=== PATIENT | male | born 1950 | race Caucasian/White ===

== ENCOUNTER 2020-11-16 07:18 | Outpatient (REF) | payer MEDICARE, SELFPAY ==
[2020-11-16 11:13] LABS: MANUAL DIFF FLAG NO
[2020-11-16 11:20] LABS: Basophils Absolute Auto 0.2 X10*3/uL (0.0-0.2); Basophils Percent Auto 1.6 % (0-2); Eosinophils Absolute Auto 0.5 X10*3/uL (0.0-0.4); Eosinophils Percent Auto 5.6 % (0-4); Hematocrit 49.3 % (42-52); Hemoglobin 16.4 g/dl (14.0-18.0); Imm Gran Abs Auto 0.02 X10*3/uL (0.00-0.03); Imm Gran Pct Auto 0.2 % (0.0-0.4); Lymphocytes Absolute Auto 4.4 X10*3/uL (1.2-4.9); Lymphocytes Percent Auto 46.4 % (20-40); Mean Corpuscular HGB Conc 33.3 g/dl (31.0-36.0); Mean Corpuscular Hemoglobin 30.2 pg (27.0-33.0); Mean Corpuscular Volume 90.8 fL (80-98); Mean Platelet Volume 10.8 fL (9.4-12.4); Monocytes Absolute Auto 1.4 X10*3/uL (0.1-1.2); Monocytes Percent Auto 14.2 % (2-11); Platelet Count 285 X10*3/uL (160-400); Red Blood Count 5.43 X10*6/uL (4.60-5.80); Red Cell Distribution Width 13.6 % (11.0-16.0); White Blood Count 9.5 X10*3/uL (4.8-10.8)
[2020-11-16 11:26] LABS: Glucose Urine UA NEG (NEG); Leukocyte Esterase Urine NEG (NEG); Nitrite Urine NEG (NEG); Specific Gravity - Urine 1.025 (1.005-1.025); Urine Blood NEG (NEG); Urine Ketones NEG (NEG); Urine Protein NEG (NEG-TRACE)
[2020-11-16 11:38] LABS: Alanine Aminotransferase 22 U/L (0-40); Albumin Level 4.2 g/dL (3.5-5.0); Alkaline Phosphatase 57 U/L (39-117); Anion Gap 12 (12-20); Aspartate Amino Transferase 29 U/L (5-37); Bilirubin Total 1.1 mg/dL (0.0-1.0); Blood Urea Nitrogen 21 mg/dL (9-16); Calcium 8.9 mg/dL (8.4-10.2); Carbon Dioxide 29 mmol/L (22-29); Chloride 107 mmol/L (96-108); Cholesterol 205 mg/dL; Estimated Glomerular Filt Rate > 60; Glucose Fasting 127 mg/dL (60-99); HDL Cholesterol 44 mg/dL; LDL Cholesterol Calculated 112 mg/dl; Sodium 144 mmol/L (135-145); Total Protein 7.2 g/dL (6.5-8.0); Triglycerides 246 mg/dL
[2020-11-16 11:42] LABS: Appearance Urine CLEAR; Color Urine YELLOW
[2020-11-16 11:59] LABS: Prostate Specific Antigen Scr 1.06 ng/mL (<0.05-4.0)
[2020-11-16 12:09] LABS: Estimated Average Glucose 126 mg/dL
[2020-11-16 12:12] LABS: Mucus Urine 1+ /LPF; RBC Urine 0 /HPF (0); WBC Urine 0-2 /HPF (0-4)
== END 2020-11-16 07:19 | disposition home or self-care (01) ==
LOC: HO.HMGCLDS 07:18
PROVIDERS: PCP Internal Medicine; Visit Provider Internal Medicine
DX: R73.9 Hyperglycemia, unspecified (principal); Z00.00 Encounter for general adult medical examination without abnormal findings
CPT/HCPCS: 36415; 80053; 80061; 81001; 83036; 84153; 85025

== ENCOUNTER 2021-01-09 08:31 | Outpatient (REF) | payer MEDICARE, SELFPAY ==
[2021-01-09 11:30] LABS: Estimated Average Glucose 126 mg/dL
[2021-01-09 11:48] LABS: Alanine Aminotransferase 17 U/L (0-40); Albumin Level 4.4 g/dL (3.5-5.0); Alkaline Phosphatase 59 U/L (39-117); Anion Gap 14 (12-20); Aspartate Amino Transferase 29 U/L (5-37); Bilirubin Total 1.1 mg/dL (0.0-1.0); Blood Urea Nitrogen 24 mg/dL (9-16); Calcium 9.1 mg/dL (8.4-10.2); Carbon Dioxide 27 mmol/L (22-29); Chloride 105 mmol/L (96-108); Estimated Glomerular Filt Rate 57; Glucose Fasting 130 mg/dL (60-99); Potassium 4.1 mmol/L (3.3-5.1); Sodium 142 mmol/L (135-145); Total Protein 7.4 g/dL (6.5-8.0)
== END 2021-01-09 08:32 | disposition home or self-care (01) ==
LOC: HO.HMGCLDS 08:31
PROVIDERS: PCP Internal Medicine; Visit Provider Internal Medicine
DX: Z00.00 Encounter for general adult medical examination without abnormal findings (principal); I10 Essential (primary) hypertension; R73.9 Hyperglycemia, unspecified
CPT/HCPCS: 36415; 80053; 83036

== ENCOUNTER 2021-06-11 07:43 | Outpatient (REF) | payer MEDICARE, SELFPAY ==
[2021-06-11 11:24] LABS: Hematocrit 47.7 % (42-52); Hemoglobin 15.8 g/dl (14.0-18.0); Mean Corpuscular HGB Conc 33.1 g/dl (31.0-36.0); Mean Corpuscular Hemoglobin 29.7 pg (27.0-33.0); Mean Corpuscular Volume 89.7 fL (80-98); Mean Platelet Volume 10.4 fL (9.4-12.4); Platelet Count 258 X10*3/uL (160-400); Red Blood Count 5.32 X10*6/uL (4.60-5.80); Red Cell Distribution Width 13.5 % (11.0-16.0); White Blood Count 8.9 X10*3/uL (4.8-10.8)
[2021-06-11 11:42] LABS: Estimated Average Glucose 131 mg/dL; Hemoglobin A1c % 6.2 %
[2021-06-11 11:54] LABS: Alanine Aminotransferase 20 U/L (0-40); Albumin Level 4.2 g/dL (3.5-5.0); Alkaline Phosphatase 65 U/L (39-117); Anion Gap 15 (12-20); Aspartate Amino Transferase 25 U/L (5-37); Bilirubin Total 1.3 mg/dL (0.0-1.0); Blood Urea Nitrogen 16 mg/dL (9-16); Calcium 9.3 mg/dL (8.4-10.2); Carbon Dioxide 26 mmol/L (22-29); Chloride 106 mmol/L (96-108); Cholesterol 199 mg/dL; Estimated Glomerular Filt Rate 59; Glucose Fasting 119 mg/dL (60-99); HDL Cholesterol 45 mg/dL; LDL Cholesterol Calculated 105 mg/dl; Potassium 4.6 mmol/L (3.3-5.1); Sodium 142 mmol/L (135-145); Total Protein 7.3 g/dL (6.5-8.0); Triglycerides 249 mg/dL
[2021-06-11 12:01] LABS: Glucose Urine UA NEG (NEG); Leukocyte Esterase Urine NEG (NEG); Nitrite Urine NEG (NEG); Urine Blood NEG (NEG); Urine Ketones NEG (NEG); Urine Protein NEG (NEG-TRACE)
[2021-06-11 12:06] LABS: Appearance Urine CLEAR; Color Urine YELLOW
[2021-06-11 12:34] LABS: RBC Urine 0-2 /HPF (0); WBC Urine 0-2 /HPF (0-4)
== END 2021-06-11 07:44 | disposition home or self-care (01) ==
LOC: HO.HMGCLDS 07:43
PROVIDERS: PCP Internal Medicine; Visit Provider Internal Medicine
DX: Z00.00 Encounter for general adult medical examination without abnormal findings (principal); I10 Essential (primary) hypertension; R73.9 Hyperglycemia, unspecified
CPT/HCPCS: 36415; 80053; 80061; 81001; 83036; 85027

== ENCOUNTER 2021-12-17 07:17 | Outpatient (REF) | payer MEDICARE, SELFPAY ==
[2021-12-17 11:35] LABS: Estimated Average Glucose 126 mg/dL
[2021-12-17 12:09] LABS: Alanine Aminotransferase 27 U/L (0-40); Albumin Level 4.4 g/dL (3.5-5.0); Alkaline Phosphatase 61 U/L (39-117); Anion Gap 15 (12-20); Aspartate Amino Transferase 28 U/L (5-37); Bilirubin Total 0.9 mg/dL (0.0-1.0); Blood Urea Nitrogen 21 mg/dL (9-16); Calcium 9.7 mg/dL (8.4-10.2); Carbon Dioxide 26 mmol/L (22-29); Chloride 105 mmol/L (96-108); Cholesterol 212 mg/dL; Estimated Glomerular Filt Rate 59; Glucose Fasting 117 mg/dL (60-99); HDL Cholesterol 49 mg/dL; LDL Cholesterol Calculated 124 mg/dl; Sodium 142 mmol/L (135-145); Total Protein 7.9 g/dL (6.5-8.0); Triglycerides 197 mg/dL
[2021-12-17 12:17] LABS: Creatinine Urine 152.27 mg/dL; Microalbum/Creatinine Ratio Ur 33.4 ug/mg cr
== END 2021-12-17 07:18 | disposition home or self-care (01) ==
LOC: HO.HMGCLDS 07:17
PROVIDERS: Visit Provider Internal Medicine
DX: Z00.00 Encounter for general adult medical examination without abnormal findings (principal); I10 Essential (primary) hypertension; R73.9 Hyperglycemia, unspecified
CPT/HCPCS: 36415; 80053; 80061; 82043; 83036

== ENCOUNTER 2022-03-03 07:05 | Outpatient (REF) | payer MEDICARE, SELFPAY ==
[2022-03-03 12:38] LABS: Alanine Aminotransferase 25 U/L (0-40); Albumin Level 4.3 g/dL (3.5-5.0); Alkaline Phosphatase 61 U/L (39-117); Anion Gap 13 (12-20); Aspartate Amino Transferase 24 U/L (5-37); Bilirubin Total 0.9 mg/dL (0.0-1.0); Blood Urea Nitrogen 18 mg/dL (9-16); Calcium 9.8 mg/dL (8.4-10.2); Carbon Dioxide 29 mmol/L (22-29); Chloride 104 mmol/L (96-108); Cholesterol 198 mg/dL; Estimated Glomerular Filt Rate 55; Glucose Fasting 138 mg/dL (60-99); HDL Cholesterol 43 mg/dL; LDL Cholesterol Calculated 107 mg/dl; Potassium 3.8 mmol/L (3.3-5.1); Sodium 142 mmol/L (135-145); Total Protein 7.6 g/dL (6.5-8.0); Triglycerides 241 mg/dL
[2022-03-03 12:38] LABS: Creatinine Urine 167.04 mg/dL; Microalbum/Creatinine Ratio Ur 9.5 ug/mg cr
[2022-03-03 12:42] LABS: Prostate Specific Antigen Scr 1.08 ng/mL (<0.05-4.0)
[2022-03-03 12:59] LABS: Estimated Average Glucose 128 mg/dL; Hemoglobin A1c % 6.1 %
== END 2022-03-03 07:06 | disposition home or self-care (01) ==
LOC: HO.HMGCLDS 07:05
PROVIDERS: Visit Provider Internal Medicine
DX: Z00.00 Encounter for general adult medical examination without abnormal findings (principal); Z12.5 Encounter for screening for malignant neoplasm of prostate; I10 Essential (primary) hypertension; R73.9 Hyperglycemia, unspecified
CPT/HCPCS: 36415; 80053; 80061; 82043; 83036; 84153

== ENCOUNTER 2022-08-27 06:51 | Outpatient (REF) | payer MEDICARE, SELFPAY ==
[2022-08-27 11:30] LABS: Hematocrit 49.9 % (42.0-52.0); Hemoglobin 16.4 g/dl (14.0-18.0); Mean Corpuscular HGB Conc 32.9 g/dl (31.0-36.0); Mean Corpuscular Hemoglobin 29.5 pg (27.0-33.0); Mean Corpuscular Volume 89.9 fL (80.0-98.0); Mean Platelet Volume 10.6 fL (9.4-12.4); Platelet Count 272 X10*3/uL (160-400); Red Blood Count 5.55 X10*6/uL (4.60-5.80); Red Cell Distribution Width 13.8 % (11.0-16.0); White Blood Count 9.5 X10*3/uL (4.8-10.8)
[2022-08-27 11:42] LABS: Estimated Average Glucose 117 mg/dL; Hemoglobin A1c % 5.7 %
[2022-08-27 11:52] LABS: Alanine Aminotransferase 19 U/L (0-40); Albumin Level 4.5 g/dL (3.5-5.0); Alkaline Phosphatase 65 U/L (39-117); Anion Gap 15 (12-20); Aspartate Amino Transferase 22 U/L (5-37); Bilirubin Total 1.1 mg/dL (0.0-1.0); Blood Urea Nitrogen 17 mg/dL (9-16); Calcium 9.4 mg/dL (8.4-10.2); Carbon Dioxide 23 mmol/L (22-29); Chloride 107 mmol/L (96-108); Cholesterol 187 mg/dL; Estimated Glomerular Filt Rate > 60; Glucose Fasting 120 mg/dL (60-99); HDL Cholesterol 46 mg/dL; LDL Cholesterol Calculated 107 mg/dl; Potassium 4.3 mmol/L (3.3-5.1); Sodium 141 mmol/L (135-145); Total Protein 7.6 g/dL (6.5-8.0); Triglycerides 174 mg/dL
== END 2022-08-27 06:52 | disposition home or self-care (01) ==
LOC: HO.HMGCLDS 06:51
PROVIDERS: PCP Internal Medicine; Visit Provider Internal Medicine
DX: I10 Essential (primary) hypertension (principal); R73.9 Hyperglycemia, unspecified; E78.5 Hyperlipidemia, unspecified
CPT/HCPCS: 36415; 80053; 80061; 83036; 85027

== ENCOUNTER 2023-02-20 06:55 | Outpatient (REF) | payer MEDICARE, SELFPAY ==
[2023-02-20 11:17] LABS: MANUAL DIFF FLAG NO
[2023-02-20 11:28] LABS: Basophils Absolute Auto 0.1 X10*3/uL (0.0-0.2); Basophils Percent Auto 1.2 % (0-2); Eosinophils Absolute Auto 0.5 X10*3/uL (0.0-0.4); Eosinophils Percent Auto 4.8 % (0-4); Hematocrit 50.6 % (42.0-52.0); Hemoglobin 16.5 g/dl (14.0-18.0); Imm Gran Abs Auto 0.02 X10*3/uL (0.00-0.03); Imm Gran Pct Auto 0.2 % (0.0-0.4); Lymphocytes Absolute Auto 4.4 X10*3/uL (1.2-4.9); Lymphocytes Percent Auto 43.3 % (20-40); Mean Corpuscular HGB Conc 32.6 g/dl (31.0-36.0); Mean Corpuscular Hemoglobin 29.8 pg (27.0-33.0); Mean Corpuscular Volume 91.5 fL (80.0-98.0); Mean Platelet Volume 10.9 fL (9.4-12.4); Monocytes Absolute Auto 1.5 X10*3/uL (0.1-1.2); Monocytes Percent Auto 14.4 % (2-11); Neutrophils Absolute Auto 3.7 x10*3/uL (2.0-8.3); Neutrophils Percent Auto 36.1 % (45-73); Platelet Count 311 X10*3/uL (160-400); Red Blood Count 5.53 X10*6/uL (4.60-5.80); Red Cell Distribution Width 13.5 % (11.0-16.0); White Blood Count 10.2 X10*3/uL (4.8-10.8)
[2023-02-20 11:31] LABS: Estimated Average Glucose 126 mg/dL
[2023-02-20 11:59] LABS: Alanine Aminotransferase 22 U/L (0-40); Albumin Level 4.3 g/dL (3.5-5.0); Alkaline Phosphatase 70 U/L (39-117); Anion Gap 12 (12-20); Aspartate Amino Transferase 24 U/L (5-37); Bilirubin Total 1.3 mg/dL (0.0-1.0); Blood Urea Nitrogen 16 mg/dL (9-16); Calcium 9.3 mg/dL (8.4-10.2); Carbon Dioxide 26 mmol/L (22-29); Chloride 109 mmol/L (96-108); Cholesterol 213 mg/dL; Estimated Glomerular Filt Rate > 60; Glucose Fasting 124 mg/dL (60-99); HDL Cholesterol 48 mg/dL; LDL Cholesterol Calculated 120 mg/dl; Sodium 142 mmol/L (135-145); Total Protein 7.3 g/dL (6.5-8.0); Triglycerides 229 mg/dL
[2023-02-20 12:17] LABS: Creatinine Urine 141.55 mg/dL; Microalbum/Creatinine Ratio Ur 97.4 ug/mg cr
== END 2023-02-20 06:56 | disposition home or self-care (01) ==
LOC: HO.HMGCLDS 06:55
PROVIDERS: PCP Internal Medicine; Visit Provider Internal Medicine
DX: Z12.5 Encounter for screening for malignant neoplasm of prostate (principal); H40.9 Unspecified glaucoma; I10 Essential (primary) hypertension; R73.9 Hyperglycemia, unspecified; E78.5 Hyperlipidemia, unspecified
CPT/HCPCS: 36415; 80053; 80061; 82043; 83036; 84153; 85025

== ENCOUNTER 2023-10-10 09:22 | Outpatient (REF) | payer MEDICARE, MEDICAID, SELFPAY ==
[2023-10-10 12:20] LABS: Alanine Aminotransferase 24 U/L (0-40); Albumin Level 4.4 g/dL (3.5-5.0); Alkaline Phosphatase 67 U/L (39-117); Anion Gap 13 (12-20); Aspartate Amino Transferase 33 U/L (5-37); Bilirubin Total 1.4 mg/dL (0.0-1.0); Blood Urea Nitrogen 15 mg/dL (9-16); Calcium 9.7 mg/dL (8.4-10.2); Carbon Dioxide 25 mmol/L (22-29); Chloride 108 mmol/L (96-108); Cholesterol 190 mg/dL (<200); Estimated Average Glucose 120 mg/dL; Estimated Glomerular Filt Rate > 60; Glucose Fasting 108 mg/dL (60-99); HDL Cholesterol 47 mg/dL (>40); Hemoglobin A1c % 5.8 % (<6.0); LDL Cholesterol Calculated 111 mg/dL (<100); Potassium 4.4 mmol/L (3.3-5.1); Sodium 142 mmol/L (135-145); Total Protein 7.8 g/dL (6.5-8.0); Triglycerides 160 mg/dL (<150)
[2023-10-10 13:30] LABS: Creatinine Urine 174.78 mg/dL; Microalbum/Creatinine Ratio Ur 45.7 ug/mg cr (<30)
== END 2023-10-10 09:23 | disposition home or self-care (01) ==
LOC: HO.HMGCLDS 09:22
PROVIDERS: PCP Internal Medicine; Visit Provider Internal Medicine
DX: E78.5 Hyperlipidemia, unspecified (principal); R73.9 Hyperglycemia, unspecified
CPT/HCPCS: 36415; 80053; 80061; 82043; 82570; 83036

== ENCOUNTER 2023-10-13 09:15 | Outpatient (AMB) | payer MEDICARE, MEDICAID, SELFPAY ==
--- NOTE | 2023-10-13 09:20 | A.OFFPC_ITS ---
Vital Signs 10/13/23 09:23 Height 5 ft 5 in Weight 189 lb 6 oz BMI 31.5 BP 150/90 H Blood Pressure Location Rt brachial Position Sitting Pulse 74 Pulse Source Pulse Oximeter Pulse Oximetry (%) 95 Oxygen Delivery Method Room Air Intake Visit Reasons: PE Allergies No Known Allergies Allergy (Verified 10/13/23 09:25) Medication List - Last Reconciled 10/13/23 by Maria De Jesus Renee MD amlodipine 10 mg PO DAILY brimonidine 0.15% 1 drp ophthalmic (eye) BID dorzolamide-timolol 22.3-6.8 mg/mL 1 drp ophthalmic (eye) metoprolol succinate ER 100 mg PO DAILY olmesartan 20 mg PO DAILY tafluprost (PF) 0.0015% 1 drp ophthalmic (eye) BEDTIME triamterene-hydrochlorothiazid 37.5-25 mg 1 tab PO DAILY Tobacco use date assessed: 03/03/23 HPI PE HPI Details Pt presents for PE. PFSH Medical History Hyperlipemia Hyperglycemia Annual physical exam Glaucoma HTN (hypertension) Surgical History No pertinent past surgical history Family History Father Unknown family medical history Mother CVD (cardiovascular disease) Son No problems noted. Social History Housing: House Alcohol intake: current Alcohol intake frequency: a few times a month Patient Tobacco Use Status: Former Tobacco user e-Cigarette/Vaping Use: Never Used Current occupational status: retired Cognitive needs: No Hearing needs: No Vision needs: No Questionnaire Thrive Questionnaire Date Thrive assessed: 03/03/23 ABIGAIL-7 AMB Questionnaire ABIGAIL-7 Date ABIGAIL - 7 assessed: 03/03/23 Source: Developed by Drs. Bhupendra Coe, Teresa Szymanski, Gera Rankin and colleagues, with an educational yadi from [employer] Review of Systems Const All systems reviewed & are unremarkable except as noted in HPI and below Reports no additional complaints Eyes Reports no additional complaints ENT Reports no additional complaints Card Reports no additional complaints Resp Reports no additional complaints GI Reports no additional complaints Reports no additional complaints Physical exam (Primary Care) Vital Signs: Last Vital Signs Pulse 74 10/13/23 09:23 BP 150/90 H 10/13/23 09:23 Pulse Ox 95 10/13/23 09:23 Oxygen Delivery Method Room Air 10/13/23 09:23 BMI result Body Mass Index 31.5 Tobacco/Smoking Status: Tobacco use Status Tobacco use date assessed 03/03/23 10/13/23 09:22 Patient Tobacco Use Status Former Tobacco user 10/13/23 09:22 e-Cigarette/Vaping Use Never Used 10/13/23 09:22 Thrive Assessment: Date of Thrive Assessment Date Thrive assessed 03/03/23 10/13/23 09:22 Const General: no acute distress HENMT Head: Yes normal to inspection Ears: hearing grossly normal bilaterally General nose exam: Normal external nose present Face and sinus: Yes normal facial exam Mouth: Normal oral and palatal mucosa present Throat: Yes posterior oropharynx normal Eyes General: appearance normal, both eyes and all related structures Neck Neck: Yes no lymphadenopathy and Yes supple Resp Effort & Inspection: normal respiratory effort Auscultation: clear to auscultation bilaterally Cardio Rhythm: regular rhythm Heart sounds: S1 normal heart sound present and S2 normal heart sound present GI Inspection: Yes normal to inspection Palpation (GI): Soft to palpation Percussion: Yes normal to percussion Auscultation: normal bowel sounds Assessment and Plan Assessment & Plan (1) HTN (hypertension): Code(s): I10 - Essential (primary) hypertension Plan: Add 20 mg of olmesartan to current medications, low sodium diet increase physical activity discussed with the patient. BMP will be checked in 1 week and patient will follow-up in 6 weeks for blood pressure check (2) Hyperglycemia: Code(s): R73.9 - Hyperglycemia, unspecified Plan: A1c is 5.8, ADA diet increase exercise weight loss discussed with the patient. (3) Annual physical exam: Code(s): Z00.00 - Encounter for general adult medical examination without abnormal findings Plan: Well-balanced diet regular physical activity weight loss discussed with the patient. He refused colonoscopy and Cologuard (4) Colonoscopy refused: Comment: 09/20, 10/22 Code(s): Z53.20 - Procedure and treatment not carried out because of patient's decision for unspecified reasons (5) Hyperlipemia: Code(s): E78.5 - Hyperlipidemia, unspecified Plan: Continue low-cholesterol diet Orders: Orders Basic Metabolic Panel 1 Week I10 - Essential (primary) hypertension Medications: New olmesartan 20 mg PO DAILY 90 tabs 0RF Refilled amlodipine 10 mg PO DAILY 90 tabs 3RF metoprolol succinate ER 100 mg PO DAILY 90 tabs 3RF triamterene-hydrochlorothiazid 37.5-25 mg 1 tab PO DAILY 90 tabs 3RF Coding Level of Care Code Est Pt Prev Care >65y(33054) Diagnoses HTN (hypertension) I10 Hyperglycemia R73.9 Annual physical exam Z00.00 Colonoscopy refused Z53.20 Hyperlipemia E78.5
[2023-10-13 09:23] VITALS: BP 150/90; PULSE 74; O2SAT 95; BMI 31.5
== END 2023-10-13 10:24 | disposition home or self-care (01) ==
PROVIDERS: PCP Internal Medicine; Visit Provider Internal Medicine
DX: I10 Essential (primary) hypertension (principal); R73.9 Hyperglycemia, unspecified; Z00.00 Encounter for general adult medical examination without abnormal findings; Z53.20 Procedure and treatment not carried out because of patient's decision for unspecified reasons; E78.5 Hyperlipidemia, unspecified
CPT/HCPCS: 99397

== ENCOUNTER 2023-10-20 08:54 | Outpatient (REF) | payer MEDICARE, MEDICAID, SELFPAY ==
[2023-10-20 12:00] LABS: Anion Gap 11 (12-20); Blood Urea Nitrogen 13 mg/dL (9-16); Calcium 9.6 mg/dL (8.4-10.2); Carbon Dioxide 27 mmol/L (22-29); Chloride 108 mmol/L (96-108); Estimated Glomerular Filt Rate > 60; Glucose Random 119 mg/dL (60-115); Potassium 4.5 mmol/L (3.3-5.1); Sodium 141 mmol/L (135-145)
== END 2023-10-20 08:55 | disposition home or self-care (01) ==
LOC: HO.HMGCLDS 08:54
PROVIDERS: PCP Internal Medicine; Visit Provider Internal Medicine
DX: I10 Essential (primary) hypertension (principal)
CPT/HCPCS: 36415; 80048

== ENCOUNTER 2023-11-17 11:49 | Outpatient (AMB) | payer MEDICARE, MEDICAID, SELFPAY ==
--- NOTE | 2023-11-17 11:57 | A.OFFPC_ITS ---
Vital Signs 11/17/23 11:59 Height 5 ft 5 in Weight 191 lb BMI 31.8 BP 134/66 Blood Pressure Location Lt brachial Position Sitting Pulse 64 Pulse Source Pulse Oximeter Pulse Oximetry (%) 97 Oxygen Delivery Method Room Air Intake Visit Reasons: Follow up on labs Allergies No Known Allergies Allergy (Verified 10/13/23 09:25) Medication List - Last Reconciled 11/17/23 by Maria De Jesus Renee MD amlodipine 10 mg PO DAILY brimonidine 0.15% 1 drp ophthalmic (eye) BID dorzolamide-timolol 22.3-6.8 mg/mL 1 drp ophthalmic (eye) metoprolol succinate ER 100 mg PO DAILY olmesartan 20 mg PO DAILY tafluprost (PF) 0.0015% 1 drp ophthalmic (eye) BEDTIME triamterene-hydrochlorothiazid 37.5-25 mg 1 tab PO DAILY Tobacco use date assessed: 11/17/23 Dental Screening Dental Screen Date: 11/17/23 Did you have a dental visit in the last 12 months?: Yes Did you have a dental problem in the last 6 months where you did not have access to dental care?: No Was dental information given to patient?: Patient has dentist HPI Follow up on labs HPI Details Patient presents for the follow-up on hypertension, better controlled on current medications. [facility] Medical History Hyperlipemia Hyperglycemia Annual physical exam Glaucoma HTN (hypertension) Surgical History No pertinent past surgical history Family History Father Unknown family medical history Mother CVD (cardiovascular disease) Son No problems noted. Social History Housing: House Alcohol intake: current Alcohol intake frequency: a few times a month Patient Tobacco Use Status: Former Tobacco user e-Cigarette/Vaping Use: Never Used Current occupational status: retired Cognitive needs: No Hearing needs: No Vision needs: No Questionnaire Thrive Questionnaire Date Thrive assessed: 03/03/23 ABIGAIL-7 AMB Questionnaire ABIGAIL-7 Date ABIGAIL - 7 assessed: 03/03/23 Source: Developed by Drs. Bhupendra Coe, Teresa Szymanski, Gera Rankin and colleagues, with an educational yadi from [employer]. Review of Systems Const All systems reviewed & are unremarkable except as noted in HPI and below Reports no additional complaints ENT Reports no additional complaints Card Reports no additional complaints Resp Reports no additional complaints GI Reports no additional complaints Reports no additional complaints Physical exam (Primary Care) Vital Signs: Last Vital Signs Pulse 64 11/17/23 11:59 BP 134/66 11/17/23 11:59 Pulse Ox 97 11/17/23 11:59 Oxygen Delivery Method Room Air 11/17/23 11:59 BMI result Body Mass Index 31.8 Tobacco/Smoking Status: Tobacco use Status Tobacco use date assessed 11/17/23 11/17/23 12:07 Patient Tobacco Use Status Former Tobacco user 11/17/23 12:07 e-Cigarette/Vaping Use Never Used 11/17/23 11:57 Thrive Assessment: Date of Thrive Assessment Date Thrive assessed 03/03/23 11/17/23 11:57 Const General: no acute distress HENMT Head: Yes normal to inspection Neck Neck: Yes no lymphadenopathy and Yes supple Resp Effort & Inspection: normal respiratory effort Auscultation: clear to auscultation bilaterally Cardio Rhythm: regular rhythm Heart sounds: S1 normal heart sound present and S2 normal heart sound present GI Inspection: Yes normal to inspection Palpation (GI): Soft to palpation Percussion: Yes normal to percussion Auscultation: normal bowel sounds Assessment and Plan Assessment & Plan (1) Hyperlipemia: Code(s): E78.5 - Hyperlipidemia, unspecified Plan: low cholesterol diet, regular exercise and weight loss discussed with the patient (2) HTN (hypertension): Code(s): I10 - Essential (primary) hypertension Plan: Continue current medications (3) Hyperglycemia: Code(s): R73.9 - Hyperglycemia, unspecified Plan: ADA diet increase exercise weight loss discussed with the patient check A1c in 2 months Orders: Orders Lipid Panel 2 Months E78.5 - Hyperlipidemia, unspecified, I10 - Essential (primary) hypertension, R73.9 - Hyperglycemia, unspecified PSA,Total (Free>4and<10) 2 Months E78.5 - Hyperlipidemia, unspecified, I10 - Essential (primary) hypertension, R73.9 - Hyperglycemia, unspecified Hemoglobin A1c 2 Months E78.5 - Hyperlipidemia, unspecified, I10 - Essential (primary) hypertension, R73.9 - Hyperglycemia, unspecified Comprehensive [place]. Panel Fast 2 Months E78.5 - Hyperlipidemia, unspecified, I10 - Essential (primary) hypertension, R73.9 - Hyperglycemia, unspecified Complete Blood Count Auto Diff 2 Months E78.5 - Hyperlipidemia, unspecified, I10 - Essential (primary) hypertension, R73.9 - Hyperglycemia, unspecified Microalbumin, Random (w Creat) 2 Months E78.5 - Hyperlipidemia, unspecified, I10 - Essential (primary) hypertension, R73.9 - Hyperglycemia, unspecified Coding Level of Care Code Est Pt Level 4 (33038) Diagnoses Hyperlipemia E78.5 HTN (hypertension) I10 Hyperglycemia R73.9
[2023-11-17 11:59] VITALS: BP 134/66; PULSE 64; O2SAT 97; BMI 31.8
== END 2023-11-17 13:17 | disposition home or self-care (01) ==
PROVIDERS: PCP Internal Medicine; Visit Provider Internal Medicine
DX: E78.5 Hyperlipidemia, unspecified (principal); I10 Essential (primary) hypertension; R73.9 Hyperglycemia, unspecified
CPT/HCPCS: 99214

== ENCOUNTER 2024-01-23 07:57 | Outpatient (REF) | payer MEDICARE, MEDICAID, SELFPAY ==
[2024-01-23 11:06] LABS: MANUAL DIFF FLAG NO
[2024-01-23 11:13] LABS: Basophils Absolute Auto 0.1 X10*3/uL (0.0-0.2); Eosinophils Absolute Auto 0.4 X10*3/uL (0.0-0.4); Eosinophils Percent Auto 3.5 % (0-4); Hematocrit 49.6 % (42.0-52.0); Hemoglobin 16.5 g/dl (14.0-18.0); Imm Gran Abs Auto 0.03 X10*3/uL (0.00-0.03); Imm Gran Pct Auto 0.3 % (0.0-0.4); Lymphocytes Absolute Auto 4.2 X10*3/uL (1.2-4.9); Mean Corpuscular HGB Conc 33.3 g/dl (31.0-36.0); Mean Corpuscular Hemoglobin 30.2 pg (27.0-33.0); Mean Corpuscular Volume 90.8 fL (80.0-98.0); Mean Platelet Volume 10.4 fL (9.4-12.4); Monocytes Absolute Auto 1.4 X10*3/uL (0.1-1.2); Monocytes Percent Auto 14.2 % (2-11); Neutrophils Absolute Auto 3.8 x10*3/uL (2.0-8.3); Platelet Count 277 X10*3/uL (160-400); Red Blood Count 5.46 X10*6/uL (4.60-5.80); Red Cell Distribution Width 14.3 % (11.0-16.0); White Blood Count 9.9 X10*3/uL (4.8-10.8)
[2024-01-23 11:22] LABS: Estimated Average Glucose 114 mg/dL; Hemoglobin A1c % 5.6 % (<6.0)
[2024-01-23 11:27] LABS: Alanine Aminotransferase 16 U/L (0-40); Albumin Level 4.4 g/dL (3.5-5.0); Alkaline Phosphatase 67 U/L (39-117); Anion Gap 14 (12-20); Aspartate Amino Transferase 22 U/L (5-37); Bilirubin Total 1.3 mg/dL (0.0-1.0); Blood Urea Nitrogen 18 mg/dL (9-16); Calcium 9.8 mg/dL (8.4-10.2); Carbon Dioxide 22 mmol/L (22-29); Chloride 108 mmol/L (96-108); Cholesterol 189 mg/dL (<200); Estimated Glomerular Filt Rate > 60; Glucose Fasting 111 mg/dL (60-99); HDL Cholesterol 45 mg/dL (>40); LDL Cholesterol Calculated 104 mg/dL (<100); Potassium 4.4 mmol/L (3.3-5.1); Sodium 140 mmol/L (135-145); Total Protein 7.9 g/dL (6.5-8.0); Triglycerides 203 mg/dL (<150)
[2024-01-23 11:39] LABS: Creatinine Urine 92.35 mg/dL; Microalbum/Creatinine Ratio Ur 19.4 ug/mg cr (<30)
[2024-01-23 11:41] LABS: PSA,Total (Free>4and<10) 1.24 ng/mL (0.00-4.00)
== END 2024-01-23 07:58 | disposition home or self-care (01) ==
LOC: HO.HMGCLDS 07:57
PROVIDERS: PCP Internal Medicine; Visit Provider Internal Medicine
DX: Z12.5 Encounter for screening for malignant neoplasm of prostate (principal); I10 Essential (primary) hypertension; R73.9 Hyperglycemia, unspecified; E78.5 Hyperlipidemia, unspecified
CPT/HCPCS: 36415; 80053; 80061; 82043; 82570; 83036; 84153; 85025

== ENCOUNTER 2024-01-28 09:21 | Outpatient (AMB) | payer MEDICARE, MEDICAID, SELFPAY ==
[2024-01-28 09:23] VITALS: BP 124/66; PULSE 68; O2SAT 97; BMI 31.1
--- NOTE | 2024-01-28 09:23 | MHC.PC.OV ---
Vital Signs 01/28/24 09:23 Height 5 ft 5 in Weight 187 lb BMI 31.1 BP 124/66 Blood Pressure Location Lt brachial Position Sitting Pulse 68 Pulse Source Pulse Oximeter Pulse Oximetry (%) 97 Oxygen Delivery Method Room Air Intake Visit Reasons: 2 months follow up visit Allergies No Known Allergies Allergy (Verified 01/28/24 09:35) Tobacco use date assessed: 01/28/24 Fall risk assessment: No Falls in past year Last assessed Fall Risk: 01/28/24 Dental Screening Dental Screen Date: 01/28/24 Did you have a dental visit in the last 12 months?: No Did you have a dental problem in the last 6 months where you did not have access to dental care?: No Was dental information given to patient?: Patient declined HPI 2 months follow up visit HPI Details Patient presents for the follow-up on hypertension [facility] Medical History Hyperlipemia Hyperglycemia Annual physical exam Glaucoma HTN (hypertension) Surgical History No pertinent past surgical history Family History Father Unknown family medical history Mother CVD (cardiovascular disease) Son No problems noted. Social History Housing: House Alcohol intake: current Alcohol intake frequency: a few times a month Patient Tobacco Use Status: Former Tobacco user e-Cigarette/Vaping Use: Never Used Current occupational status: retired Cognitive needs: No Hearing needs: No Vision needs: No Questionnaire PHQ-9 Over the last 2 weeks, how often have you been bothered by any of the following problems? 1. Little interest or pleasure in doing things: not at all 2. Feeling down, depressed, or hopeless: not at all 3. Trouble falling or staying asleep, or sleeping too much: not at all 4. Feeling tired or having little energy: not at all 5. Poor appetite or overeating: not at all 6. Feeling bad about yourself - or that you are a failure or have let yourself or your family down: not at all 7. Trouble concentrating on things, such as reading the newspaper or watching television: not at all 8. Moving or speaking so slowly that other people could have noticed. Or the opposite - being so fidgety or restless that you have been moving around a lot more than usual: not at all 9. Thoughts that you would be better off or of hurting yourself in some way: not at all Total score: 0 Depression Screening Interpretation: Negative Depression Screening Done: Yes Source: Developed by Drs. Bhupendra Coe, Teresa Szymanski, Gera Rankin and colleagues, with an educational yadi from [employer]. Thrive Questionnaire Date Thrive assessed: 01/28/24 I am a: Patient What is your living situation today?: I have a steady place to live Within the past 12 months, did the food you bought not last and you didn't have the money to get more?: Never true Within the past 12 months, did you worry whether your food would run out before you got money to buy more?: Never true Do you have trouble paying for medicines?: No Do you have trouble getting transportation to medical appointments?: No Do you have trouble paying your heating and electricity bill?: No Do you have trouble taking care of your child, family member or friend?: No Do you have trouble with day-to-day activities such as bathing, preparing meals, shopping, managing finances, etc.?: No Are you currently unemployed and looking for a job?: No Are you interested in more education?: No Please select the resources that you would like help with: None THRIVE Score: 0 AUDIT C Alcohol Use Questionnaire (AUDIT-C) 1. How often do you have a drink containing alcohol?: Never 3. How often do you have six or more drinks on one occasion?: Never Total Score: 0 ABIGAIL-7 AMB Questionnaire ABIGAIL-7 Date ABIGAIL - 7 assessed: 01/28/24 Feeling nervous, anxious, or on edge: 0 = Not at all Not being able to stop or control worryin = Not at all Worrying too much about different things: 0 = Not at all Trouble relaxin = Not at all Being so restless that it is hard to sit still: 0 = Not at all Becoming easily annoyed or irritable: 0 = Not at all Feeling afraid as if something awful might happen: 0 = Not at all Total ABIGAIL-7 score (0-4 normal; 5-9 mild; 10-14 moderate; 15-21 severe): 0 Source: Developed by Drs. Bhupendra Coe, Teresa Szymanski, Gera Rankin and colleagues, with an educational yadi from [employer]. Review of Systems Const All systems reviewed & are unremarkable except as noted in HPI and below Reports no additional complaints Eyes Reports no additional complaints ENT Reports no additional complaints Card Reports no additional complaints Resp Reports no additional complaints GI Reports no additional complaints Reports no additional complaints Physical exam (Primary Care) Vital Signs: Last Vital Signs Pulse 68 01/28/24 09:23 BP 124/66 01/28/24 09:23 Pulse Ox 97 01/28/24 09:23 Oxygen Delivery Method Room Air 01/28/24 09:23 BMI result Body Mass Index 31.1 Tobacco/Smoking Status: Tobacco use Status Tobacco use date assessed 01/28/24 01/28/24 09:36 Patient Tobacco Use Status Former Tobacco user 01/28/24 09:23 e-Cigarette/Vaping Use Never Used 01/28/24 09:23 PHQ-9: PHQ-9 Score PHQ-9: Total score 0 01/28/24 09:48 Depression Screening Interpretation: Negative Thrive Assessment: Date of Thrive Assessment Date Thrive assessed 01/28/24 01/28/24 09:38 Const General: no acute distress Eyes General: appearance normal, both eyes and all related structures Neck Neck: Yes no lymphadenopathy and Yes supple Resp Effort & Inspection: normal respiratory effort Auscultation: clear to auscultation bilaterally Cardio Rhythm: regular rhythm Heart sounds: S1 normal heart sound present and S2 normal heart sound present Extrem General: Yes no clubbing, cyanosis or edema Assessment and Plan Assessment & Plan (1) Glaucoma: Comment: f/u [facility] [place] Code(s): H40.9 - Unspecified glaucoma Plan: Follow-up with ophthalmology (2) HTN (hypertension): Code(s): I10 - Essential (primary) hypertension Plan: Continue current medications increase physical activity weight lost discussed with the patient (3) Hyperglycemia: Code(s): R73.9 - Hyperglycemia, unspecified Plan: A1c is 5.9, ADA diet increase exercise weight loss discussed with the patient Orders: Referrals Cologuard Test Z12.11 - Encounter for screening for malignant neoplasm of colon, Z12.12 - Encounter for screening for malignant neoplasm of rectum Coding Level of Care Code Est Pt Level 4 (10525) Diagnoses Glaucoma H40.9 HTN (hypertension) I10 Hyperglycemia R73.9
== END 2024-01-28 15:20 | disposition home or self-care (01) ==
PROVIDERS: PCP Internal Medicine; Visit Provider Internal Medicine
DX: H40.9 Unspecified glaucoma (principal); I10 Essential (primary) hypertension; R73.9 Hyperglycemia, unspecified
CPT/HCPCS: 99214

== ENCOUNTER 2024-07-11 06:25 | Outpatient (REF) | payer MEDICARE, MEDICAID, SELFPAY ==
[2024-07-11 09:55] LABS: MANUAL DIFF FLAG NO
[2024-07-11 10:01] LABS: Basophils Absolute Auto 0.1 X10*3/uL (0.0-0.2); Basophils Percent Auto 1.4 % (0-2); Eosinophils Absolute Auto 0.5 X10*3/uL (0.0-0.4); Eosinophils Percent Auto 4.9 % (0-4); Hematocrit 48.2 % (42.0-52.0); Hemoglobin 16.1 g/dl (14.0-18.0); Imm Gran Abs Auto 0.03 X10*3/uL (0.00-0.03); Imm Gran Pct Auto 0.3 % (0.0-0.4); Lymphocytes Absolute Auto 4.4 X10*3/uL (1.2-4.9); Lymphocytes Percent Auto 44.4 % (20-40); Mean Corpuscular HGB Conc 33.4 g/dl (31.0-36.0); Mean Corpuscular Hemoglobin 30.4 pg (27.0-33.0); Mean Corpuscular Volume 90.9 fL (80.0-98.0); Mean Platelet Volume 10.7 fL (9.4-12.4); Monocytes Absolute Auto 1.4 X10*3/uL (0.1-1.2); Monocytes Percent Auto 14.2 % (2-11); Neutrophils Absolute Auto 3.5 x10*3/uL (2.0-8.3); Neutrophils Percent Auto 34.8 % (45-73); Platelet Count 274 X10*3/uL (160-400); Red Cell Distribution Width 13.5 % (11.0-16.0); White Blood Count 9.9 X10*3/uL (4.8-10.8)
[2024-07-11 10:15] LABS: Alanine Aminotransferase 19 U/L (0-40); Albumin Level 4.2 g/dL (3.5-5.0); Alkaline Phosphatase 61 U/L (39-117); Anion Gap 11 (12-20); Aspartate Amino Transferase 24 U/L (5-37); Blood Urea Nitrogen 15 mg/dL (9-16); Calcium 9.1 mg/dL (8.4-10.2); Carbon Dioxide 24 mmol/L (22-29); Chloride 109 mmol/L (96-108); Cholesterol 170 mg/dL (<200); Estimated Glomerular Filt Rate 57; Glucose Fasting 107 mg/dL (60-99); HDL Cholesterol 41 mg/dL (>40); LDL Cholesterol Calculated 81 mg/dL (<100); Potassium 4.3 mmol/L (3.3-5.1); Sodium 140 mmol/L (135-145); Total Protein 7.5 g/dL (6.5-8.0); Triglycerides 242 mg/dL (<150)
[2024-07-11 10:52] LABS: Estimated Average Glucose 114 mg/dL; Hemoglobin A1c % 5.6 % (<6.0)
== END 2024-07-11 06:26 | disposition home or self-care (01) ==
LOC: HO.HMGCLDS 06:25
PROVIDERS: PCP Internal Medicine; Visit Provider Internal Medicine
DX: E78.5 Hyperlipidemia, unspecified (principal); R73.9 Hyperglycemia, unspecified; I10 Essential (primary) hypertension
CPT/HCPCS: 36415; 80053; 80061; 83036; 85025

== ENCOUNTER 2024-07-13 09:15 | Outpatient (AMB) | payer MEDICARE, MEDICAID, SELFPAY ==
[2024-07-13 09:15] VITALS: BP 128/74; PULSE 66; O2SAT 96; BMI 31.6
--- NOTE | 2024-07-13 09:15 | A.OFFPC_ITS ---
Vital Signs 07/13/24 09:15 Height 5 ft 5 in Weight 190 lb BMI 31.6 BP 128/74 Blood Pressure Location Lt brachial Position Sitting Pulse 66 Pulse Source Pulse Oximeter Pulse Oximetry (%) 96 Oxygen Delivery Method Room Air Intake Visit Reasons: Follow up Intake Note: Pt is here today for a follow up visit on labs. Allergies No Known Allergies Allergy (Verified 07/13/24 09:18) Medication List - Last Reconciled 07/13/24 by Maria De Jesus Renee MD amlodipine 10 mg PO DAILY brimonidine 0.15% 1 drp ophthalmic (eye) BID dorzolamide-timolol 22.3-6.8 mg/mL 1 drp ophthalmic (eye) metoprolol succinate ER 100 mg PO DAILY olmesartan 20 mg PO DAILY tafluprost (PF) 0.0015% 1 drp ophthalmic (eye) BEDTIME triamterene-hydrochlorothiazid 37.5-25 mg 1 tab PO DAILY Tobacco use date assessed: 07/13/24 Fall risk assessment: No Falls in past year Dental Screening Dental Screen Date: 01/28/24 HPI Follow up HPI Details Patient presents for the follow-up of hypertension, stable on medications. [facility] Medical History (Updated 07/13/24 @ 10:02 by Maria De Jesus Renee MD) Hyperlipemia Hyperglycemia Annual physical exam Glaucoma HTN (hypertension) Surgical History No pertinent past surgical history Family History Father Unknown family medical history Mother CVD (cardiovascular disease) Son No problems noted. Social History Housing: House Alcohol intake: current Alcohol intake frequency: a few times a month Patient Tobacco Use Status: Former Tobacco user e-Cigarette/Vaping Use: Never Used service: No Current occupational status: retired Cognitive needs: No Hearing needs: No Vision needs: No Questionnaire PHQ-9 Over the last 2 weeks, how often have you been bothered by any of the following problems? 1. Little interest or pleasure in doing things: not at all 2. Feeling down, depressed, or hopeless: not at all 3. Trouble falling or staying asleep, or sleeping too much: not at all 4. Feeling tired or having little energy: not at all 5. Poor appetite or overeating: not at all 6. Feeling bad about yourself - or that you are a failure or have let yourself or your family down: not at all 7. Trouble concentrating on things, such as reading the newspaper or watching television: not at all 8. Moving or speaking so slowly that other people could have noticed. Or the opposite - being so fidgety or restless that you have been moving around a lot more than usual: not at all 9. Thoughts that you would be better off or of hurting yourself in some way: not at all Total score: 0 Depression Screening Interpretation: Negative Depression Screening Done: Yes 78402 - PHQ-9 Billing: Yes Source: Developed by Drs. Bhupendra Coe, Teresa Szymanski, Gera Rankin and colleagues, with an educational yadi from [employer]. Thrive Questionnaire Date Thrive assessed: 07/13/24 I am a: Patient What is your living situation today?: I have a steady place to live Within the past 12 months, did the food you bought not last and you didn't have the money to get more?: Never true Within the past 12 months, did you worry whether your food would run out before you got money to buy more?: Never true Do you have trouble paying for medicines?: No Do you have trouble getting transportation to medical appointments?: No Do you have trouble paying your heating and electricity bill?: No Do you have trouble taking care of your child, family member or friend?: No Do you have trouble with day-to-day activities such as bathing, preparing meals, shopping, managing finances, etc.?: No Are you currently unemployed and looking for a job?: No Are you interested in more education?: No Please select the resources that you would like help with: None Currently or been in a relationship where the following occur: No concerns reported THRIVE Score: 0 AUDIT C Alcohol Use Questionnaire (AUDIT-C) 1. How often do you have a drink containing alcohol?: Never 3. How often do you have six or more drinks on one occasion?: Never Total Score: 0 ABIGAIL-7 AMB Questionnaire ABIGAIL-7 Date ABIGAIL - 7 assessed: 07/13/24 Feeling nervous, anxious, or on edge: 0 = Not at all Not being able to stop or control worryin = Not at all Worrying too much about different things: 0 = Not at all Trouble relaxin = Not at all Being so restless that it is hard to sit still: 0 = Not at all Becoming easily annoyed or irritable: 0 = Not at all Feeling afraid as if something awful might happen: 0 = Not at all Total ABIGAIL-7 score (0-4 normal; 5-9 mild; 10-14 moderate; 15-21 severe): 0 Source: Developed by Drs. Bhupendra Coe, Teresa Szymanski, Gera Rankin and colleagues, with an educational yadi from [employer]. ABIGAIL-7 Assessment Billing ABIGAIL-7 Assessment Tool: ABIGAIL-7 Assessment 20372 Review of Systems Const All systems reviewed & are unremarkable except as noted in HPI and below Eyes Reports no additional complaints ENT Reports no additional complaints Card Reports no additional complaints Resp Reports no additional complaints GI Reports no additional complaints Reports no additional complaints Physical exam (Primary Care) Vital Signs: Last Vital Signs Pulse 66 07/13/24 09:15 BP 128/74 07/13/24 09:15 Pulse Ox 96 07/13/24 09:15 Oxygen Delivery Method Room Air 07/13/24 09:15 BMI result Body Mass Index 31.6 Tobacco/Smoking Status: Tobacco use Status Tobacco use date assessed 07/13/24 07/13/24 09:20 Patient Tobacco Use Status Former Tobacco user 07/13/24 09:16 e-Cigarette/Vaping Use Never Used 07/13/24 09:16 PHQ-9: PHQ-9 Score PHQ-9: Total score 0 07/13/24 09:22 Depression Screening Interpretation: Negative Thrive Assessment: Date of Thrive Assessment Date Thrive assessed 07/13/24 07/13/24 09:22 Currently or been in a relationship where the following occur: No concerns reported Const General: no acute distress HENMT Head: Yes normal to inspection Neck Neck: Yes supple Resp Effort & Inspection: normal respiratory effort Auscultation: clear to auscultation bilaterally Cardio Rhythm: regular rhythm Heart sounds: S1 normal heart sound present and S2 normal heart sound present GI Inspection: Yes normal to inspection Palpation (GI): Soft to palpation Percussion: Yes normal to percussion Auscultation: normal bowel sounds Assessment and Plan Assessment & Plan (1) Colonoscopy refused: Comment: 09/20, 10/22, negative Cologuard 01/2024 Code(s): Z53.20 - Procedure and treatment not carried out because of patient's decision for unspecified reasons (2) HTN (hypertension): Code(s): I10 - Essential (primary) hypertension Plan: Continue current medications (3) Hyperlipemia: Code(s): E78.5 - Hyperlipidemia, unspecified Plan: Continue low-cholesterol diet (4) Hyperglycemia: Comment: A1C 5.6 06/2024 Code(s): R73.9 - Hyperglycemia, unspecified Plan: Continue ADA diet Coding Level of Care Code Est Pt Level 3 (88599) Diagnoses Colonoscopy refused Z53.20 HTN (hypertension) I10 Hyperlipemia E78.5 Hyperglycemia R73.9 Additional Codes ABIGAIL-7 Assessment Billing - ABIGAIL-7 Assessment Tool: ABIGAIL-7 Assessment 84995 ([id number])
== END 2024-07-13 10:04 | disposition home or self-care (01) ==
PROVIDERS: PCP Internal Medicine; Visit Provider Internal Medicine
DX: I10 Essential (primary) hypertension (principal); Z53.20 Procedure and treatment not carried out because of patient's decision for unspecified reasons; E78.5 Hyperlipidemia, unspecified; R73.9 Hyperglycemia, unspecified
CPT/HCPCS: 99213

== ENCOUNTER 2024-11-10 11:13 | Outpatient (AMB) | payer MEDICARE, MEDICAID, SELFPAY ==
[2024-11-10 11:18] VITALS: BP 128/76; PULSE 74; O2SAT 97; BMI 31.1
--- NOTE | 2024-11-10 11:18 | A.OFFPC_ITS ---
Vital Signs 11/10/24 11:18 Height 5 ft 5 in Weight 187 lb BMI 31.1 BP 128/76 Blood Pressure Location Lt brachial Position Sitting Pulse 74 Pulse Source Pulse Oximeter Pulse Oximetry (%) 97 Oxygen Delivery Method Room Air Intake Visit Reasons: Annual PE - see comments Intake Note: Pt is here today for PE. Allergies No Known Allergies Allergy (Verified 11/10/24 11:18) Medication List - Last Reconciled 11/10/24 by Maria De Jesus Renee MD amlodipine 10 mg PO DAILY brimonidine 0.15% 1 drp ophthalmic (eye) BID dorzolamide-timolol 22.3-6.8 mg/mL 1 drp ophthalmic (eye) metoprolol succinate ER 100 mg PO DAILY olmesartan 20 mg PO DAILY tafluprost (PF) 0.0015% 1 drp ophthalmic (eye) BEDTIME triamterene-hydrochlorothiazid 37.5-25 mg 1 tab PO DAILY Tobacco use date assessed: 11/10/24 Fall risk assessment: No Falls in past year Last assessed Fall Risk: 11/10/24 Dental Screening Dental Screen Date: 01/28/24 HPI Annual PE - see comments HPI Details Patient presents for physical PFSH Medical History (Updated 11/10/24 @ 12:56 by Maria De Jesus Renee MD) Hyperlipemia Hyperglycemia Annual physical exam Glaucoma HTN (hypertension) Surgical History No pertinent past surgical history Family History Father Unknown family medical history Mother CVD (cardiovascular disease) Son No problems noted. Social History Housing: House Alcohol intake: current Alcohol intake frequency: a few times a month Patient Tobacco Use Status: Former Tobacco user e-Cigarette/Vaping Use: Never Used service: No Current occupational status: retired Cognitive needs: No Hearing needs: No Vision needs: No Questionnaire PHQ-9 Over the last 2 weeks, how often have you been bothered by any of the following problems? 1. Little interest or pleasure in doing things: not at all 2. Feeling down, depressed, or hopeless: not at all 3. Trouble falling or staying asleep, or sleeping too much: not at all 4. Feeling tired or having little energy: not at all 5. Poor appetite or overeating: not at all 6. Feeling bad about yourself - or that you are a failure or have let yourself or your family down: not at all 7. Trouble concentrating on things, such as reading the newspaper or watching television: not at all 8. Moving or speaking so slowly that other people could have noticed. Or the opposite - being so fidgety or restless that you have been moving around a lot more than usual: not at all 9. Thoughts that you would be better off or of hurting yourself in some way: not at all Total score: 0 Depression Screening Interpretation: Negative Depression Screening Done: Yes 95799 - PHQ-9 Billing: Yes Source: Developed by Drs. Bhupendra Coe, Teresa Szymanski, Gera Rankin and colleagues, with an educational yadi from [employer]. Thrive Questionnaire Date Thrive assessed: 11/10/24 I am a: Patient What is your living situation today?: I have a steady place to live Within the past 12 months, did the food you bought not last and you didn't have the money to get more?: Never true Within the past 12 months, did you worry whether your food would run out before you got money to buy more?: Never true Do you have trouble paying for medicines?: No Do you have trouble getting transportation to medical appointments?: No Do you have trouble paying your heating and electricity bill?: No Do you have trouble taking care of your child, family member or friend?: No Do you have trouble with day-to-day activities such as bathing, preparing meals, shopping, managing finances, etc.?: No Are you currently unemployed and looking for a job?: No Are you interested in more education?: No Please select the resources that you would like help with: None THRIVE Score: 0 ABIGAIL-7 AMB Questionnaire ABIGAIL-7 Date ABIGAIL - 7 assessed: 11/10/24 Feeling nervous, anxious, or on edge: 0 = Not at all Not being able to stop or control worryin = Not at all Worrying too much about different things: 0 = Not at all Trouble relaxin = Not at all Being so restless that it is hard to sit still: 0 = Not at all Becoming easily annoyed or irritable: 0 = Not at all Feeling afraid as if something awful might happen: 0 = Not at all Total ABIGAIL-7 score (0-4 normal; 5-9 mild; 10-14 moderate; 15-21 severe): 0 Source: Developed by Drs. Bhupendra Coe, Teresa Szymanski, Gera Rankin and colleagues, with an educational yadi from [employer]. ABIGAIL-7 Assessment Billing ABIGAIL-7 Assessment Tool: ABIGAIL-7 Assessment 99969 Review of Systems Const All systems reviewed & are unremarkable except as noted in HPI and below Eyes Reports no additional complaints ENT Reports no additional complaints Card Reports no additional complaints Resp Reports no additional complaints GI Reports no additional complaints Reports no additional complaints Physical exam (Primary Care) Vital Signs: Last Vital Signs Pulse 74 11/10/24 11:18 BP 128/76 11/10/24 11:18 Pulse Ox 97 11/10/24 11:18 Oxygen Delivery Method Room Air 11/10/24 11:18 BMI result Body Mass Index 31.1 Tobacco/Smoking Status: Tobacco use Status Tobacco use date assessed 11/10/24 11/10/24 11:19 Patient Tobacco Use Status Former Tobacco user 11/10/24 11:19 e-Cigarette/Vaping Use Never Used 11/10/24 11:19 PHQ-9: PHQ-9 Score PHQ-9: Total score 0 11/10/24 11:46 Depression Screening Interpretation: Negative Thrive Assessment: Date of Thrive Assessment Date Thrive assessed 11/10/24 11/10/24 11:46 Const General: no acute distress HENMT Head: Yes normal to inspection Face and sinus: Yes normal facial exam Throat: Yes posterior oropharynx normal Eyes General: appearance normal, both eyes and all related structures Neck Neck: Yes supple Resp Effort & Inspection: normal respiratory effort Auscultation: clear to auscultation bilaterally Cardio Rhythm: regular rhythm Heart sounds: S1 normal heart sound present and S2 normal heart sound present GI Inspection: Yes normal to inspection Palpation (GI): Soft to palpation Percussion: Yes normal to percussion Auscultation: normal bowel sounds Coding Level of Care Code Est Pt Prev Care >65y(78891) Diagnoses HTN (hypertension) I10 Annual physical exam Z00.00 Hyperglycemia R73.9 Additional Codes ABIGAIL-7 Assessment Billing - ABIGAIL-7 Assessment Tool: ABIGAIL-7 Assessment 92970 ([id number]) PHQ-9 - 32032 - PHQ-9 Billing: Yes ([id number]) Assessment & Plan Assessment & Plan (1) HTN (hypertension): Code(s): I10 - Essential (primary) hypertension Category: Medical Plan: Continue current medications (2) Annual physical exam: Comment: Negative Cologuard 01/2024 Code(s): Z00.00 - Encounter for general adult medical examination without abnormal findings Category: Medical Plan: Well-balanced diet regular physical activity weight loss discussed with the patient. He had negative Cologuard in January (3) Hyperglycemia: Comment: A1C 5.6 06/2024 Code(s): R73.9 - Hyperglycemia, unspecified Category: Medical Plan: Continue ADA diet regular exercise weight loss Orders: Orders Comprehensive [place]. Panel Fast 3 Months E78.5 - Hyperlipidemia, unspecified, I10 - Essential (primary) hypertension, R73.9 - Hyperglycemia, unspecified, Z00.00 - Encounter for general adult medical examination without abnormal findings Complete Blood Count Auto Diff 3 Months E78.5 - Hyperlipidemia, unspecified, I10 - Essential (primary) hypertension, R73.9 - Hyperglycemia, unspecified, Z00.00 - Encounter for general adult medical examination without abnormal findings Hemoglobin A1c 3 Months E78.5 - Hyperlipidemia, unspecified, I10 - Essential (primary) hypertension, R73.9 - Hyperglycemia, unspecified, Z00.00 - Encounter for general adult medical examination without abnormal findings PSA,Total (Free>4and<10) 3 Months E78.5 - Hyperlipidemia, unspecified, I10 - Essential (primary) hypertension, R73.9 - Hyperglycemia, unspecified, Z00.00 - Encounter for general adult medical examination without abnormal findings Lipid Panel 3 Months E78.5 - Hyperlipidemia, unspecified, I10 - Essential ([place]) hypertension, R73.9 - Hyperglycemia, unspecified, Z00.00 - Encounter for general adult medical examination without abnormal findings
== END 2024-11-10 12:59 | disposition home or self-care (01) ==
PROVIDERS: PCP Internal Medicine; Visit Provider Internal Medicine
DX: I10 Essential (primary) hypertension (principal); Z00.00 Encounter for general adult medical examination without abnormal findings; R73.9 Hyperglycemia, unspecified

== ENCOUNTER → 2024-11-10 11:13 | Outpatient (BNVA) | payer MEDICARE, MEDICAID, SELFPAY | PROVIDERS: PCP Internal Medicine; Visit Provider Internal Medicine | DX: Z00.00 Encounter for general adult medical examination without abnormal findings (principal); I10 Essential (primary) hypertension; R73.9 Hyperglycemia, unspecified | CPT/HCPCS: 96127; 99397 ==

== ENCOUNTER 2025-02-20 06:56 | Outpatient (REF) | payer MEDICARE, MEDICAID, SELFPAY ==
[2025-02-20 10:33] LABS: MANUAL DIFF FLAG NO
[2025-02-20 10:38] LABS: Basophils Absolute Auto 0.1 X10*3/uL (0.0-0.2); Basophils Percent Auto 1.1 % (0-2); Eosinophils Absolute Auto 0.4 X10*3/uL (0.0-0.4); Eosinophils Percent Auto 4.8 % (0-4); Hematocrit 47.1 % (42.0-52.0); Hemoglobin 15.7 g/dl (14.0-18.0); Imm Gran Abs Auto 0.02 X10*3/uL (0.00-0.03); Imm Gran Pct Auto 0.2 % (0.0-0.4); Lymphocytes Absolute Auto 3.8 X10*3/uL (1.2-4.9); Lymphocytes Percent Auto 41.3 % (20-40); Mean Corpuscular HGB Conc 33.3 g/dl (31.0-36.0); Mean Corpuscular Hemoglobin 30.3 pg (27.0-33.0); Mean Corpuscular Volume 90.8 fL (80.0-98.0); Mean Platelet Volume 10.9 fL (9.4-12.4); Monocytes Absolute Auto 1.4 X10*3/uL (0.1-1.2); Monocytes Percent Auto 14.8 % (2-11); Neutrophils Absolute Auto 3.5 x10*3/uL (2.0-8.3); Neutrophils Percent Auto 37.8 % (45-73); Platelet Count 281 X10*3/uL (160-400); Red Blood Count 5.19 X10*6/uL (4.60-5.80); Red Cell Distribution Width 13.5 % (11.0-16.0); White Blood Count 9.2 X10*3/uL (4.8-10.8)
[2025-02-20 10:55] LABS: Estimated Average Glucose 120 mg/dL; Hemoglobin A1c % 5.8 % (<6.0)
[2025-02-20 11:06] LABS: PSA,Total (Free>4and<10) 2.33 ng/mL (0.00-4.00)
[2025-02-20 11:20] LABS: Alanine Aminotransferase 18 U/L (0-40); Albumin Level 4.2 g/dL (3.5-5.0); Alkaline Phosphatase 64 U/L (39-117); Anion Gap 11 (12-20); Aspartate Amino Transferase 26 U/L (5-37); Bilirubin Total 0.9 mg/dL (0.0-1.0); Blood Urea Nitrogen 16 mg/dL (9-16); Calcium 9.1 mg/dL (8.4-10.2); Carbon Dioxide 23 mmol/L (22-29); Chloride 110 mmol/L (96-108); Cholesterol 189 mg/dL (<200); Estimated Glomerular Filt Rate > 60; Glucose Fasting 111 mg/dL (60-99); HDL Cholesterol 42 mg/dL (>40); LDL Cholesterol Calculated 103 mg/dL (<100); Potassium 4.2 mmol/L (3.3-5.1); Sodium 140 mmol/L (135-145); Total Protein 7.5 g/dL (6.5-8.0); Triglycerides 221 mg/dL (<150)
== END 2025-02-20 06:57 | disposition home or self-care (01) ==
LOC: HO.HMGCLDS 06:56
PROVIDERS: PCP Internal Medicine; Visit Provider Internal Medicine
DX: Z00.00 Encounter for general adult medical examination without abnormal findings (principal); E78.5 Hyperlipidemia, unspecified; R73.9 Hyperglycemia, unspecified; I10 Essential (primary) hypertension; Z12.5 Encounter for screening for malignant neoplasm of prostate
CPT/HCPCS: 36415; 80053; 80061; 83036; 84153; 85025

== ENCOUNTER 2025-02-22 09:00 | Outpatient (AMB) | payer MEDICARE, MEDICAID, SELFPAY ==
[2025-02-22 09:02] VITALS: BP 126/64; PULSE 57; RESP 20; TEMP 36.6; O2SAT 98; BMI 31.4
--- NOTE | 2025-02-22 09:02 | A.OFFPC_ITS ---
Vital Signs 02/22/25 09:02 Height 5 ft 5 in Weight 189 lb BMI 31.4 BP 126/64 Blood Pressure Location Lt brachial Position Sitting Respiration 20 Pulse 57 Pulse Source Pulse Oximeter Temp 97.9 F Temp Source Oral Pulse Oximetry (%) 98 Oxygen Delivery Method Room Air Intake Visit Reasons: 3 months follow up Intake Note: Pt is here today for 3 months follow up visit. Allergies No Known Allergies Allergy (Verified 02/22/25 09:04) Medication List - Last Reconciled 02/22/25 by Maria De Jesus Renee MD amlodipine 10 mg PO DAILY brimonidine 0.15% 1 drp ophthalmic (eye) BID dorzolamide-timolol 22.3-6.8 mg/mL 1 drp ophthalmic (eye) metoprolol succinate ER 100 mg PO DAILY olmesartan 20 mg PO DAILY tafluprost (PF) 0.0015% 1 drp ophthalmic (eye) BEDTIME triamterene-hydrochlorothiazid 37.5-25 mg 1 tab PO DAILY Tobacco use date assessed: 02/22/25 Fall risk assessment: No Falls in past year Last assessed Fall Risk: 02/22/25 Dental Screening Dental Screen Date: 02/22/25 Did you have a dental visit in the last 12 months?: No Did you have a dental problem in the last 6 months where you did not have access to dental care?: No Was dental information given to patient?: Patient declined HPI 3 months follow up HPI Details Patient presents for the follow-up of hypertension controlled on current medications. [facility] Medical History (Updated 02/22/25 @ 15:11 by Maria De Jesus Renee MD) Hyperlipemia Hyperglycemia Annual physical exam Glaucoma HTN (hypertension) Surgical History No pertinent past surgical history Family History Father Unknown family medical history Mother CVD (cardiovascular disease) Son No problems noted. Social History Housing: House Alcohol intake: current Alcohol intake frequency: a few times a month Patient Tobacco Use Status: Former Tobacco user e-Cigarette/Vaping Use: Never Used service: No Current occupational status: retired Cognitive needs: No Hearing needs: No Vision needs: No Questionnaire PHQ-9 Over the last 2 weeks, how often have you been bothered by any of the following problems? 1. Little interest or pleasure in doing things: not at all 2. Feeling down, depressed, or hopeless: not at all 3. Trouble falling or staying asleep, or sleeping too much: not at all 4. Feeling tired or having little energy: not at all 5. Poor appetite or overeating: not at all 6. Feeling bad about yourself - or that you are a failure or have let yourself or your family down: not at all 7. Trouble concentrating on things, such as reading the newspaper or watching television: not at all 8. Moving or speaking so slowly that other people could have noticed. Or the opposite - being so fidgety or restless that you have been moving around a lot more than usual: not at all 9. Thoughts that you would be better off or of hurting yourself in some way: not at all Total score: 0 Depression Screening Interpretation: Negative Depression Screening Done: Yes 56665 - PHQ-9 Billing: Yes Source: Developed by Drs. Bhupendra Coe, Teresa Szymanski, Gera Rankin and colleagues, with an educational yadi from [employer]. Thrive Questionnaire Date Thrive assessed: 02/22/25 I am a: Patient What is your living situation today?: I have a steady place to live Within the past 12 months, did the food you bought not last and you didn't have the money to get more?: I choose not to answer this question Within the past 12 months, did you worry whether your food would run out before you got money to buy more?: I choose not to answer this question Do you have trouble paying for medicines?: I choose not to answer this question Do you have trouble getting transportation to medical appointments?: I choose not to answer this question Do you have trouble paying your heating and electricity bill?: I choose not to answer this question Do you have trouble taking care of your child, family member or friend?: I choose not to answer this question Do you have trouble with day-to-day activities such as bathing, preparing meals, shopping, managing finances, etc.?: I choose not to answer this question Are you currently unemployed and looking for a job?: I choose not to answer this question Are you interested in more education?: I choose not to answer this question THRIVE Score: 0 AUDIT C Alcohol Use Questionnaire (AUDIT-C) 1. How often do you have a drink containing alcohol?: Never 3. How often do you have six or more drinks on one occasion?: Never Total Score: 0 ABIGAIL-7 AMB Questionnaire ABIGAIL-7 Date ABIGAIL - 7 assessed: 11/10/24 Feeling nervous, anxious, or on edge: 0 = Not at all Not being able to stop or control worryin = Not at all Worrying too much about different things: 0 = Not at all Trouble relaxin = Not at all Being so restless that it is hard to sit still: 0 = Not at all Becoming easily annoyed or irritable: 0 = Not at all Feeling afraid as if something awful might happen: 0 = Not at all Total ABIGAIL-7 score (0-4 normal; 5-9 mild; 10-14 moderate; 15-21 severe): 0 Source: Developed by Drs. Bhupendra Coe, Teresa Szymanski, Gera Rankin and colleagues, with an educational yadi from [employer]. ABIGAIL-7 Assessment Billing ABIGAIL-7 Assessment Tool: ABIGAIL-7 Assessment 82230 Review of Systems Const All systems reviewed & are unremarkable except as noted in HPI and below Eyes Reports no additional complaints ENT Reports no additional complaints Card Reports no additional complaints Resp Reports no additional complaints GI Reports no additional complaints Reports no additional complaints Physical exam (Primary Care) Vital Signs: Last Vital Signs Temp 97.9 F 02/22/25 09:02 Pulse 57 02/22/25 09:02 Resp 20 02/22/25 09:02 BP 126/64 02/22/25 09:02 Pulse Ox 98 02/22/25 09:02 Oxygen Delivery Method Room Air 02/22/25 09:02 BMI result Body Mass Index 31.4 Tobacco/Smoking Status: Tobacco use Status Tobacco use date assessed 02/22/25 02/22/25 09:05 Patient Tobacco Use Status Former Tobacco user 02/22/25 09:02 e-Cigarette/Vaping Use Never Used 02/22/25 09:02 PHQ-9: PHQ-9 Score PHQ-9: Total score 0 02/22/25 09:05 Depression Screening Interpretation: Negative Thrive Assessment: Date of Thrive Assessment Date Thrive assessed 02/22/25 02/22/25 09:05 Const General: no acute distress HENMT Head: Yes normal to inspection Throat: Yes posterior oropharynx normal Resp Effort & Inspection: normal respiratory effort Auscultation: clear to auscultation bilaterally Cardio Rhythm: regular rhythm Heart sounds: S1 normal heart sound present and S2 normal heart sound present Coding Level of Care Code Est Pt Level 4 (45088) Diagnoses Hyperlipemia E78.5 Glaucoma H40.9 HTN (hypertension) I10 Hyperglycemia R73.9 Additional Codes ABIGAIL-7 Assessment Billing - ABIGAIL-7 Assessment Tool: ABIGAIL-7 Assessment 43476 ([id number]) PHQ-9 - 47235 - PHQ-9 Billing: Yes ([id number]) Assessment & Plan Assessment & Plan (1) Hyperlipemia: Comment: Diet controlled Code(s): E78.5 - Hyperlipidemia, unspecified Category: Medical Plan: Continue low-cholesterol diet increase physical activity weight loss discussed with the patient (2) Glaucoma: Comment: f/u [facility] [place] Code(s): H40.9 - Unspecified glaucoma Category: Medical Plan: Follow-up with ophthalmology (3) HTN (hypertension): Code(s): I10 - Essential (primary) hypertension Category: Medical Plan: Continue current medications (4) Hyperglycemia: Comment: A1C 5.6 06/2024 Code(s): R73.9 - Hyperglycemia, unspecified Category: Medical Plan: ADA diet regular physical activity discussed with the patient return in 6 months with a fasting labs before Orders: Orders Comprehensive [place]. Panel Fast 6 Months E78.5 - Hyperlipidemia, unspecified, I10 - Essential (primary) hypertension, R73.9 - Hyperglycemia, unspecified Lipid Panel 6 Months E78.5 - Hyperlipidemia, unspecified, I10 - Essential (primary) hypertension, R73.9 - Hyperglycemia, unspecified Complete Blood Count Auto Diff 6 Months E78.5 - Hyperlipidemia, unspecified, I10 - Essential (primary) hypertension, R73.9 - Hyperglycemia, unspecified Hemoglobin A1c 6 Months E78.5 - Hyperlipidemia, unspecified, I10 - Essential (primary) hypertension, R73.9 - Hyperglycemia, unspecified
== END 2025-02-22 10:23 | disposition home or self-care (01) ==
LOC: HO.HMCC 09:00
PROVIDERS: PCP Internal Medicine; Visit Provider Internal Medicine
DX: E78.5 Hyperlipidemia, unspecified (principal); H40.9 Unspecified glaucoma; I10 Essential (primary) hypertension; R73.9 Hyperglycemia, unspecified

== ENCOUNTER → 2025-02-22 09:00 | Outpatient (BNVA) | payer MEDICARE, MEDICAID, SELFPAY | PROVIDERS: PCP Internal Medicine; Visit Provider Internal Medicine | DX: E78.5 Hyperlipidemia, unspecified (principal); H40.9 Unspecified glaucoma; R73.9 Hyperglycemia, unspecified | CPT/HCPCS: 96127; 99212 ==

== ENCOUNTER 2025-08-01 06:10 | Outpatient (REF) | payer MEDICARE, MEDICAID, SELFPAY ==
[2025-08-01 10:50] LABS: MANUAL DIFF FLAG NO
[2025-08-01 10:55] LABS: Hematocrit 48.3 % (42.0-52.0); Hemoglobin 16.0 g/dl (14.0-18.0); Imm Gran Abs Auto 0.02 X10*3/uL (0.00-0.03); Imm Gran Pct Auto 0.2 % (0.0-0.4); Lymphocytes Absolute Auto 4.1 X10*3/uL (1.2-4.9); Mean Corpuscular HGB Conc 33.1 g/dl (31.0-36.0); Mean Corpuscular Hemoglobin 29.5 pg (27.0-33.0); Mean Corpuscular Volume 89.0 fL (80.0-98.0); NRBC Abs Auto 0.000 X10*3/uL (0.0-0.012); NRBC Pct Auto 0.0 /100WBC (0.0-0.2); Platelet Count 279 X10*3/uL (160-400); Red Blood Count 5.43 X10*6/uL (4.60-5.80); White Blood Count 9.3 X10*3/uL (4.8-10.8)
[2025-08-01 11:07] LABS: Hemoglobin A1C 161.0450 umol/L; Total Hemoglobin (HGBA1C) 4156.8815 umol/L
[2025-08-01 11:54] LABS: Albumin Level 4.4 g/dL (3.5-5.0); Alkaline Phosphatase 65 U/L (39-117); Anion Gap 13 (12-20); Blood Urea Nitrogen 15 mg/dL (9-16); Calcium 9.2 mg/dL (8.4-10.2); Carbon Dioxide 22 mmol/L (22-29); Chloride 109 mmol/L (96-108); Estimated Glomerular Filt Rate > 60; Potassium 4.2 mmol/L (3.3-5.1); Sodium 140 mmol/L (135-145); Total Protein 7.5 g/dL (6.5-8.0); Triglycerides 228 mg/dL (<150)
[2025-08-01 13:23] LABS: Alanine Aminotransferase 18 U/L (0-40); Aspartate Amino Transferase 27 U/L (5-37); Cholesterol 187 mg/dL (<200); HDL Cholesterol 40 mg/dL (>40)
== END 2025-08-01 06:11 | disposition home or self-care (01) ==
LOC: HO.HMGCLDS 06:10
PROVIDERS: PCP Internal Medicine; Visit Provider Internal Medicine
DX: I10 Essential (primary) hypertension (principal); R73.9 Hyperglycemia, unspecified; E78.5 Hyperlipidemia, unspecified
CPT/HCPCS: 36415; 80053; 80061; 83036; 85025

== ENCOUNTER 2025-08-09 09:02 | Outpatient (AMB) | payer MEDICARE, MEDICAID, SELFPAY ==
[2025-08-09 09:16] VITALS: BP 116/70; PULSE 61; RESP 18; TEMP 36.8; O2SAT 97; BMI 30.8
--- NOTE | 2025-08-09 09:16 | MHC.PC.OV ---
Vital Signs 08/09/25 09:16 Height 5 ft 5 in Weight 185 lb BMI 30.8 BP 116/70 Blood Pressure Location Lt brachial Position Sitting Respiration 18 Pulse 61 Pulse Source Pulse Oximeter Temp 98.2 F Temp Source Oral Pulse Oximetry (%) 97 Oxygen Delivery Method Room Air Intake Visit Reasons: Follow up visit Intake Note: Pt is here today for a follow up visit. Allergies No Known Allergies Allergy (Verified 08/09/25 09:17) Medication List - Last Reconciled 08/09/25 by Maria De Jesus Renee MD amlodipine 10 mg PO DAILY brimonidine 0.15% 1 drp ophthalmic (eye) BID dorzolamide-timolol 22.3-6.8 mg/mL 1 drp ophthalmic (eye) metoprolol succinate ER 100 mg PO DAILY olmesartan 20 mg PO DAILY tafluprost (PF) 0.0015% 1 drp ophthalmic (eye) BEDTIME triamterene-hydrochlorothiazid 37.5-25 mg 1 tab PO DAILY Tobacco use date assessed: 08/09/25 Fall risk assessment: No Falls in past year Last assessed Fall Risk: 08/09/25 Dental Screening Dental Screen Date: 02/22/25 HPI Follow up visit HPI Details Patient presents for the follow-up on hypertension stable on current medications. He has been following ADA diet for hypoglycemia [facility] Medical History Hyperlipemia Hyperglycemia Annual physical exam Glaucoma HTN (hypertension) Surgical History No pertinent past surgical history Family History Father Unknown family medical history Mother CVD (cardiovascular disease) Son No problems noted. Social History Housing: House Alcohol intake: current Alcohol intake frequency: a few times a month Patient Tobacco Use Status: Former Tobacco user e-Cigarette/Vaping Use: Never Used service: No Current occupational status: retired Cognitive needs: No Hearing needs: No Vision needs: No Questionnaire Thrive Questionnaire Date Thrive assessed: 02/22/25 ABIGAIL-7 AMB Questionnaire ABIGAIL-7 Date ABIGAIL - 7 assessed: 12/12/24 Source: Developed by Drs. Bhupendra Coe, Teresa Szymanski, Gera Rankin and colleagues, with an educational yadi from [employer]. Review of Systems Const All systems reviewed & are unremarkable except as noted in HPI and below ENT Reports no additional complaints Card Reports no additional complaints Resp Reports no additional complaints GI Reports no additional complaints Reports no additional complaints Physical exam (Primary Care) Vital Signs: Last Vital Signs Temp 98.2 F 08/09/25 09:16 Pulse 61 08/09/25 09:16 Resp 18 08/09/25 09:16 BP 116/70 08/09/25 09:16 Pulse Ox 97 08/09/25 09:16 Oxygen Delivery Method Room Air 08/09/25 09:16 BMI result Body Mass Index 30.8 Tobacco/Smoking Status: Tobacco use Status Tobacco use date assessed 08/09/25 08/09/25 09:20 Patient Tobacco Use Status Former Tobacco user 08/09/25 09:20 e-Cigarette/Vaping Use Never Used 08/09/25 09:20 Thrive Assessment: Date of Thrive Assessment Date Thrive assessed 02/22/25 08/09/25 09:20 Const General: no acute distress HENMT Face and sinus: Yes normal facial exam Eyes General: appearance normal, both eyes and all related structures Resp Effort & Inspection: normal respiratory effort Auscultation: clear to auscultation bilaterally Cardio Rhythm: regular rhythm Heart sounds: S1 normal heart sound present and S2 normal heart sound present GI Inspection: Yes normal to inspection Coding Level of Care Code Est Pt Level 4 (24993) Diagnoses HTN (hypertension) I10 Hyperlipemia E78.5 Hyperglycemia R73.9 Assessment & Plan Assessment & Plan (1) HTN (hypertension): Code(s): I10 - Essential (primary) hypertension Category: Medical Plan: Continue current medications (2) Hyperlipemia: Comment: Diet controlled Code(s): E78.5 - Hyperlipidemia, unspecified Category: Medical Plan: Continue low-cholesterol diet regular exercise (3) Hyperglycemia: Comment: A1C 5.6 06/2024 Code(s): R73.9 - Hyperglycemia, unspecified Category: Medical Plan: A1c is 5.7 continue ADA diet regular exercise weight loss discussed with the patient, follow-up in 3 months Orders: Orders Hemoglobin A1c 3 Months E78.5 - Hyperlipidemia, unspecified, I10 - Essential (primary) hypertension, R73.9 - Hyperglycemia, unspecified Microalbumin, Random (w Creat) 3 Months E78.5 - Hyperlipidemia, unspecified, I10 - Essential (primary) hypertension, R73.9 - Hyperglycemia, unspecified Comprehensive [place]. Panel Fast 3 Months E78.5 - Hyperlipidemia, unspecified, I10 - Essential (primary) hypertension, R73.9 - Hyperglycemia, unspecified Lipid Panel 3 Months E78.5 - Hyperlipidemia, unspecified, I10 - Essential (primary) hypertension, R73.9 - Hyperglycemia, unspecified Medications: Refilled metoprolol succinate ER 100 mg PO DAILY 90 tabs 3RF olmesartan 20 mg PO DAILY 90 tabs 3RF triamterene-hydrochlorothiazid 37.5-25 mg 1 tab PO DAILY 90 tabs 3RF amlodipine 10 mg PO DAILY 90 tabs 3RF
== END 2025-08-09 09:57 | disposition home or self-care (01) ==
LOC: HO.HMCC 09:03
PROVIDERS: PCP Internal Medicine; Visit Provider Internal Medicine
DX: I10 Essential (primary) hypertension (principal); E78.5 Hyperlipidemia, unspecified; R73.9 Hyperglycemia, unspecified

== ENCOUNTER → 2025-08-09 09:02 | Outpatient (BNVA) | payer MEDICARE, OTHER, SELFPAY | PROVIDERS: PCP Internal Medicine; Visit Provider Internal Medicine | DX: I10 Essential (primary) hypertension (principal); E78.5 Hyperlipidemia, unspecified; R73.9 Hyperglycemia, unspecified | CPT/HCPCS: 99212 ==

== ENCOUNTER 2025-11-06 07:13 | Outpatient (REF) | payer MEDICARE, OTHER, SELFPAY ==
[2025-11-06 10:44] LABS: Microalbum/Creatinine Ratio Ur 24.0 ug/mg cr (<30)
[2025-11-06 11:01] LABS: Alanine Aminotransferase 22 U/L (0-40); Albumin Level 4.5 g/dL (3.5-5.0); Alkaline Phosphatase 58 U/L (39-117); Anion Gap 12 (12-20); Aspartate Amino Transferase 28 U/L (5-37); Blood Urea Nitrogen 18 mg/dL (9-16); Calcium 9.0 mg/dL (8.4-10.2); Carbon Dioxide 23 mmol/L (22-29); Chloride 110 mmol/L (96-108); Cholesterol 185 mg/dL (<200); Estimated Glomerular Filt Rate > 60; HDL Cholesterol 43 mg/dL (>40); Potassium 4.1 mmol/L (3.3-5.1); Sodium 141 mmol/L (135-145); Total Protein 7.6 g/dL (6.5-8.0); Triglycerides 203 mg/dL (<150)
== END 2025-11-06 07:14 | disposition home or self-care (01) ==
LOC: HO.HMGCLDS 07:13
PROVIDERS: PCP Internal Medicine; Visit Provider Internal Medicine
DX: I10 Essential (primary) hypertension (principal); E78.5 Hyperlipidemia, unspecified; R73.9 Hyperglycemia, unspecified
CPT/HCPCS: 36415; 80053; 80061; 82043; 82570; 83036

== ENCOUNTER 2025-11-15 08:14 | Outpatient (AMB) | payer MEDICARE, MEDICAID, SELFPAY ==
--- NOTE | 2025-11-15 08:22 | A.OFFPC_ITS ---
Vital Signs 11/15/25 08:26 Height 5 ft 5 in Weight 190 lb BMI 31.6 BP 126/80 Blood Pressure Location Lt brachial Position Sitting Respiration 16 Pulse 59 Pulse Source Pulse Oximeter Pulse Oximetry (%) 99 Oxygen Delivery Method Room Air Intake Visit Reasons: PE - see comments Intake Note: Pt is here today for PE. Allergies No Known Allergies Allergy (Verified 11/15/25 08:35) Medication List - Last Reconciled 11/15/25 by Maria De Jesus Renee MD amlodipine 10 mg PO DAILY brimonidine 0.15% 1 drp ophthalmic (eye) BID dorzolamide-timolol 22.3-6.8 mg/mL 1 drp ophthalmic (eye) metoprolol succinate ER 100 mg PO DAILY olmesartan 20 mg PO DAILY tafluprost (PF) 0.0015% 1 drp ophthalmic (eye) BEDTIME triamterene-hydrochlorothiazid 37.5-25 mg 1 tab PO DAILY Tobacco use date assessed: 08/09/25 Fall risk assessment: No Falls in past year Last assessed Fall Risk: 11/15/25 Dental Screening Dental Screen Date: 02/22/25 HPI PE - see comments HPI Details Pt presents for PE. PFSH Medical History Hyperlipemia Hyperglycemia Annual physical exam Glaucoma HTN (hypertension) Surgical History No pertinent past surgical history Family History Father Unknown family medical history Mother CVD (cardiovascular disease) Son No problems noted. Social History Housing: House Alcohol intake: current Alcohol intake frequency: a few times a month Patient Tobacco Use Status: Former Tobacco user e-Cigarette/Vaping Use: Never Used service: No Current occupational status: retired Cognitive needs: No Hearing needs: No Vision needs: No Questionnaire Thrive Questionnaire Date Thrive assessed: 02/22/25 ABIGAIL-7 AMB Questionnaire ABIGAIL-7 Date ABIGAIL - 7 assessed: 11/10/24 Source: Developed by Drs. Bhupendra Coe, Teresa Szymanski, Gera Rankin and colleagues, with an educational yadi from [employer]. Review of Systems Const All systems reviewed & are unremarkable except as noted in HPI and below Reports no additional complaints Eyes Reports no additional complaints ENT Reports no additional complaints Card Reports no additional complaints Resp Reports no additional complaints GI Reports no additional complaints Reports no additional complaints Physical exam (Primary Care) Vital Signs: Last Vital Signs Pulse 59 11/15/25 08:26 Resp 16 11/15/25 08:26 BP 126/80 11/15/25 08:26 Pulse Ox 99 11/15/25 08:26 Oxygen Delivery Method Room Air 11/15/25 08:26 BMI result Body Mass Index 31.6 Tobacco/Smoking Status: Tobacco use Status Tobacco use date assessed 08/09/25 11/15/25 08:22 Patient Tobacco Use Status Former Tobacco user 11/15/25 08:22 e-Cigarette/Vaping Use Never Used 11/15/25 08:22 Thrive Assessment: Date of Thrive Assessment Date Thrive assessed 02/22/25 11/15/25 08:22 Const General: no acute distress HENMT Head: Yes normal to inspection Ears: hearing grossly normal bilaterally Mouth: Normal oral and palatal mucosa present Throat: Yes posterior oropharynx normal Eyes General: appearance normal, both eyes and all related structures Neck Neck: Yes no lymphadenopathy and Yes supple Resp Effort & Inspection: normal respiratory effort Auscultation: clear to auscultation bilaterally Cardio Rhythm: regular rhythm Heart sounds: S1 normal heart sound present and S2 normal heart sound present GI Inspection: Yes normal to inspection Palpation (GI): Soft to palpation Percussion: Yes normal to percussion Auscultation: normal bowel sounds Coding Level of Care Code Est Pt Prev Care >65y(43534) Diagnoses HTN (hypertension) I10 Hyperglycemia R73.9 Hyperlipemia E78.5 Assessment & Plan Assessment & Plan (1) HTN (hypertension): Code(s): I10 - Essential (primary) hypertension Category: Medical Plan: cont meds (2) Hyperglycemia: Comment: A1C 5.6 06/2024 Code(s): R73.9 - Hyperglycemia, unspecified Category: Medical Plan: A1c is 5,8, ADA diet increase exercise weight loss discussed with the patient follow-up in 6 months with a fasting labs (3) Hyperlipemia: Comment: Diet controlled Code(s): E78.5 - Hyperlipidemia, unspecified Category: Medical Plan: Continue low-cholesterol diet Orders: Orders Comprehensive [place]. Panel Fast 6 Months E78.5 - Hyperlipidemia, unspecified, I10 - Essential (primary) hypertension, R73.9 - Hyperglycemia, unspecified UA w Microscopic 6 Months E78.5 - Hyperlipidemia, unspecified, I10 - Essential (primary) hypertension, R73.9 - Hyperglycemia, unspecified Hemoglobin A1c 6 Months E78.5 - Hyperlipidemia, unspecified, I10 - Essential (primary) hypertension, R73.9 - Hyperglycemia, unspecified Lipid Panel 6 Months E78.5 - Hyperlipidemia, unspecified, I10 - Essential (primary) hypertension, R73.9 - Hyperglycemia, unspecified Microalbumin, Random (w Creat) 6 Months E78.5 - Hyperlipidemia, unspecified, I10 - Essential (primary) hypertension, R73.9 - Hyperglycemia, unspecified
[2025-11-15 08:26] VITALS: BP 126/80; PULSE 59; RESP 16; O2SAT 99; BMI 31.6
== END 2025-11-15 09:26 | disposition home or self-care (01) ==
LOC: HO.HMCC 08:15
PROVIDERS: PCP Internal Medicine; Visit Provider Internal Medicine
DX: Z00.00 Encounter for general adult medical examination without abnormal findings (principal); I10 Essential (primary) hypertension; R73.9 Hyperglycemia, unspecified; E78.5 Hyperlipidemia, unspecified

== ENCOUNTER → 2025-11-15 08:14 | Outpatient (BNVA) | payer MEDICARE, MEDICAID, SELFPAY | PROVIDERS: PCP Internal Medicine; Visit Provider Internal Medicine | DX: Z00.00 Encounter for general adult medical examination without abnormal findings (principal); I10 Essential (primary) hypertension; E78.5 Hyperlipidemia, unspecified; R73.9 Hyperglycemia, unspecified | CPT/HCPCS: 99397 ==